=== PATIENT | female | born 1965 | race Caucasian/White ===

== ENCOUNTER 2018-12-23 16:46 | Emergency (ER) | payer MEDICAID ==
[2018-12-23] MEDS: IBUPROFEN 600 MG TAB PO (19:08)
== END 2018-12-23 20:03 | disposition home or self-care (01) ==
LOC: FTE 16:46
DX: S49.91XA Unspecified injury of right shoulder and upper arm, initial encounter (principal); W01.0XXA Fall on same level from slipping, tripping and stumbling without subsequent striking against object, initial encounter; Y92.9 Unspecified place or not applicable; Z85.3 Personal history of malignant neoplasm of breast
CPT/HCPCS: 73080; 73080-RT; 73090-RT; 99283-25

== ENCOUNTER 2019-01-19 09:38 | Emergency (ER) | payer MEDICAID ==
[2019-01-19] MEDS: ONDANSETRON (ODT) 4 MG TAB ODT (10:00)
[2019-01-19] MEDS: KETOROLAC 30 MG INJ IM (10:05)
[2019-01-19] MEDS: morphine 4 MG/ML VIAL IM (10:05)
== END 2019-01-19 12:00 | disposition home or self-care (01) ==
LOC: E/R 09:38
DX: S39.012A Strain of muscle, fascia and tendon of lower back, initial encounter (principal); M54.41 Lumbago with sciatica, right side; X50.1XXA Overexertion from prolonged static or awkward postures, initial encounter; Y92.89 Other specified places as the place of occurrence of the external cause; Z85.3 Personal history of malignant neoplasm of breast
CPT/HCPCS: 96372; 99284-25